=== PATIENT | male | born 1950 | race Caucasian/White ===

== ENCOUNTER 2022-07-08 07:19 | Day surgery (SDC) | payer MEDICARE ==
[2022-07-07 12:04] VITALS: BMI 27.9
[~2022-07-08 07:19] MED LIST: Fluorouracil 100 MG, Enoxaparin Sodium 25 MG, EPINEPHrine 0.3 MG in Ophthalmic Irrigati... IRR SCH; Midazolam HCl 2 mg/2 ml Vial ONE; fentaNYL PF 100 MCG/2 ML SYRINGE ONE
[2022-07-08] MEDS ORDERED: Cyclopentolate 1% Opth Drop 2 ML BOT ONE (07:32)
[2022-07-08] MEDS ORDERED: Phenylephrine 2.5% Ophth Soln 5 ML BOT ONE (07:32)
[2022-07-08] MEDS ORDERED: CEFAZOLIN 1 GM VIAL ONE (09:15)
[2022-07-08] MEDS ORDERED: Maxitrol 0.1% Opth Oint 3.5 GM TUBE ONE (09:15)
[2022-07-08] MEDS ORDERED: Triamcinolone 40 MG/ML VIAL ONE (09:15)
[2022-07-08] MEDS ORDERED: Lidocaine 4% PF 5 ML AMP ONE (09:15)
[2022-07-08] MEDS ORDERED: Bupivacaine 0.75% 10 ML VIAL ONE (09:15)
[2022-07-08] MEDS ORDERED: Lidocaine 1% PF 5 ML VIAL ONE (09:15)
[2022-07-08] MEDS ORDERED: Enoxaparin Sodium 30 MG/0.3 ML SYRINGE ONE (09:15)
[2022-07-08] MEDS ORDERED: PROPOFOL 200 MG/20 ML VIAL ONE (09:15)
== END 2022-07-08 11:04 | disposition home or self-care (01) ==
LOC: SDC 07:19
PROVIDERS: ATTEND Ophthalmology Retina Specialist
PROC: 08T43ZZ Resection of Right Vitreous, Percutaneous Approach (ICD-10-PCS; principal; 2022-07-08)
DX: H33.011 Retinal detachment with single break, right eye (principal); I10 Essential (primary) hypertension; E78.5 Hyperlipidemia, unspecified; I25.10 Atherosclerotic heart disease of native coronary artery without angina pectoris; N40.0 Benign prostatic hyperplasia without lower urinary tract symptoms; Z86.16 Personal history of COVID-19; Z79.82 Long term (current) use of aspirin; Z79.899 Other long term (current) drug therapy; Z98.41 Cataract extraction status, right eye; Z98.42 Cataract extraction status, left eye; Z96.1 Presence of intraocular lens; Z95.5 Presence of coronary angioplasty implant and graft
CPT/HCPCS: 67025; J0171; J0690; J1650; J2250; J2704; J3301; J3490; J9190